=== PATIENT | female | born 1955 ===

== ENCOUNTER 2018-04-08 11:51 | Emergency (ER) | payer OTHER ==
[2018-04-08 11:58] VITALS: BP 124/76; PULSE 87; RESP 18; TEMP 98.4; O2SAT 98
[2018-04-08] MEDS ORDERED: Promethazine/Cod 6.25mg-10mg/5ml Syr UD PO STA (12:25)
[2018-04-08] MEDS ORDERED: Albuterol 0.083% Inhal Sol (2.5 mg/3 mL) UD IH STA (12:25)
--- NOTE | 2018-04-08 12:29 | C.PDOC ---
History Of Present Illness 62 y/o female pt with PMHx of asthma and pre-diabetic comes to the ER for evaluation of cold sx for x6 days. Associated sx includes nasal congestion, sore throat, productive cough with sputum. Pt reports she started coughing with chest tightness this morning which prompt her to visit the ER. Pt denies fever, dizziness, headache, drooling, chest pain, SOB, palpitation, dipahoresis, abdominal pain, back pain, UTI sx. Ambulate to Ed for evaluation, not in any apparent distress. Time Seen by Provider: 04/08/18 12:01 Chief Complaint (Nursing): Cough, Cold, Congestion History Per: Patient History/Exam Limitations: no limitations Onset/Duration Of Symptoms: Days (x6 ) Current Symptoms Are (Timing): Still Present Past Medical History Reviewed: Historical Data, Nursing Documentation, Vital Signs Vital Signs: Last Vital Signs Temp 98.4 F 04/08/18 11:56 Pulse 87 04/08/18 11:56 Resp 18 04/08/18 11:56 BP 124/76 04/08/18 11:56 Pulse Ox 98 04/08/18 11:56 - Medical History PMH: Bipolar Disorder, Depression, HTN, Hypercholesterolemia, Seizures Family History: States: Unknown Family Hx - Social History Hx Alcohol Use: No Hx Substance Use: No - Immunization History Hx Tetanus Toxoid Vaccination: No Hx Influenza Vaccination: No Hx Pneumococcal Vaccination: No Review Of Systems Except As Marked, All Systems Reviewed And Found Negative. Constitutional: Negative for: Fever ENT: Positive for: Nose Congestion, Throat Pain Cardiovascular: Positive for: Other (chest tightness). Negative for: Chest Pain Respiratory: Positive for: Cough (productive with sputum ). Negative for: Shortness of Breath Gastrointestinal: Negative for: Abdominal Pain Neurological: Negative for: Headache, Dizziness Physical Exam - Physical Exam Appears: Well, Non-toxic, No Acute Distress Skin: Normal Color, Warm, Dry, No Rash Head: Normacephalic Eye(s): bilateral: PERRL Ear(s): Bilateral: Normal Nose: No Flaring, Discharge (scant, clear B/L) Oral Mucosa: Moist Tongue: Normal Appearing Throat: Erythema (mod B/L with mild edema.), No Exudate, No Drooling Neck: Supple, Other ((-) meningeal sign) Cardiovascular: Rhythm Regular, No Murmur, No JVD Respiratory: No Decreased Breath Sounds, No Accessory Muscle Use, No Rales, No Rhonchi, No Stridor, Wheezing (scattered Right base expiratory wheeizng, BS equal B/L) Gastrointestinal/Abdominal: Soft, No Tenderness, No Distention, No Guarding, No Rebound Extremity: Normal ROM, No Pedal Edema, No Deformity, No Swelling Neurological/Psych: Oriented x3, Normal Speech ED Course And Treatment O2 Sat by Pulse Oximetry: 98 (RA) Pulse Ox Interpretation: Normal - Radiology CXR: Interpreted by Me, Viewed By Me CXR Interpretation: Yes: No Acute Disease Progress Note: Impression: cold sx. Plans: -- CXR. -- albuterol. -- codeine. -- prednisone. On re-eval, pt is afebrile, hemodynamicaly stable. Non-toxic. PulseOx 98% RA. ENT: exam c/w pharyngitis. uvula midline, no edmea. neck: Supple, (-) JVD. Lungs: CTA B/L, BS equal B/L. CVS: (+)S1S2, reg. Abd: benign. Neuorlogicaly intact. CXR review (-) acute infiltrate noted. Pt has clinical findings c/w pharyngitis, asthma bronchitis. Pt advised. ref. to F/u with PMD in2 -3 days for re-evaluation. return if any new changes. Disposition Counseled Patient/Family Regarding: Studies Performed, Diagnosis, Need For Followup, Rx Given - Disposition Referrals: Magdaleno Suggs MD [IM] - Disposition: HOME/ ROUTINE Disposition Time: 13:05 Condition: STABLE Additional Instructions: Encourage fluids take medication as prescribed Follow up with PMD in 2-3 days for re-evaluation. return to Ed if any worsening or new changes. Prescriptions: Albuterol HFA [Ventolin HFA 90 mcg/actuation (8 g)] 1 puff IH Q6 #1 inhaler Cefdinir [Omnicef] 300 mg PO BID #14 cap Prednisone [Deltasone] 40 mg PO DAILY #6 tablet Promethazine/Codeine [Phenergan/Codeine Oral Syrup] 10 ml PO BID #90 ml Instructions: Asthma, Adult (DC), Sore Throat, Adult (DC) Forms: [email or web address] (Afghan) - Clinical Impression Clinical Impression: Bronchitis, Pharyngitis, Asthma - PA / [employer]AD[employer] / Resident Statement MD/ has reviewed & agrees with the documentation as recorded. - Scribe Statement The provider has reviewed the documentation as recorded by the Shabnam Lunsford Do All medical record entries made by the Scribe were at my direction and personally dictated by me. I have reviewed the chart and agree that the record accurately reflects my personal performance of the history, physical exam, medical decision making, and the department course for this patient. I have also personally directed, reviewed, and agree with the discharge instructions and disposition.
[2018-04-08] MEDS ORDERED: Albuterol 0.083% Inhal Sol (2.5 mg/3 mL) UD ONE (12:40)
[2018-04-08] MEDS ORDERED: Promethazine/Cod 6.25mg-10mg/5ml Syr UD ONE (13:01)
--- NOTE | 2018-04-08 15:30 | RAD ---
Date of service: 04/08/2018 HISTORY: Cough COMPARISON: Chest radiographs 06/16/2017. TECHNIQUE: Chest PA and lateral FINDINGS: LUNGS: No active pulmonary disease. PLEURA: No significant pleural effusion identified. No pneumothorax apparent. CARDIOVASCULAR: No aortic atherosclerotic calcification present. Normal cardiac size. No pulmonary vascular congestion. OSSEOUS STRUCTURES: No significant abnormalities. VISUALIZED UPPER ABDOMEN: Normal. OTHER FINDINGS: None. IMPRESSION: No interval acute cardiopulmonary disease appreciated.
== END 2018-04-08 13:28 | disposition home or self-care (01) ==
LOC: C.ER 11:51
DX: J45.909 Unspecified asthma, uncomplicated (principal); J02.9 Acute pharyngitis, unspecified; Z87.891 Personal history of nicotine dependence

== ENCOUNTER 2018-04-22 20:19 | Observation (INO) | payer OTHER ==
[2018-04-22] MEDS ORDERED: Albuterol-Ipratrop 3 mg / 0.5 (3 ml) UD INH STA (20:45)
[2018-04-22] MEDS ORDERED: Albuterol-Ipratrop 3 mg / 0.5 (3 ml) UD ONE (21:16)
[2018-04-22] MEDS: Sodium Chloride 0.9% 1,000 ML IV SCH (21:25)
--- NOTE | 2018-04-22 21:27 | C.PDOC ---
History Of Present Illness 62 yo female with PMH asthma, hypothyroidism, htn c/o productive cough and sob for 2 weeks. Pt notes she was evaluated on 04/08/18 and treated with prednisone, albuterol, antibiotics and cough medication. She states the symptoms persisted so she followed up with her PMD who prescribed her additional cough mediation. Pt had no improvement of symptoms prompting ER visit. Time Seen by Provider: 04/22/18 20:37 Chief Complaint (Nursing): Cough, Cold, Congestion Past Medical History Vital Signs: Last Vital Signs Temp 99.1 F 04/22/18 20:28 Pulse 96 H 04/22/18 20:28 Resp 18 04/22/18 20:28 BP 122/80 04/22/18 20:28 Pulse Ox 97 04/22/18 20:28 - Medical History PMH: Asthma, Bipolar Disorder, Depression, HTN, Hypercholesterolemia, Hypothyroidism, Schizophrenia, Seizures Family History: States: Unknown Family Hx - Social History Hx Alcohol Use: No Hx Substance Use: No - Immunization History Hx Tetanus Toxoid Vaccination: No Hx Influenza Vaccination: No Hx Pneumococcal Vaccination: No Physical Exam - Physical Exam Appears: Well, Non-toxic, No Acute Distress, Other (persistent cough) Skin: Normal Color, Warm, Dry Head: Atraumatic, Normacephalic Eye(s): bilateral: Normal Inspection, EOMI Nose: Normal Oral Mucosa: Moist Throat: Normal, No Erythema, No Exudate Neck: Normal, Normal ROM, Supple Chest: Symmetrical Cardiovascular: Rhythm Regular Respiratory: Wheezing (scattered wheezing) Gastrointestinal/Abdominal: Normal Exam, Soft, No Tenderness Back: Normal Inspection Extremity: Normal ROM ED Course And Treatment - Laboratory Results Result Diagrams: 04/22/18 21:12 04/22/18 21:12 ECG Rhythm: Sinus Rhythm (Normal) Interpretation Of ECG: Possible left atrial enlargement. Left ventricular hypertrophy. Nonspecific ST abnormality. Rate From EC O2 Sat by Pulse Oximetry: 97 (RA) Pulse Ox Interpretation: Normal Disposition - Disposition Disposition Time: 21:53 Forms: [facility] [employer] (Greek) - Clinical Impression Clinical Impression: Asthma exacerbation
[2018-04-22 21:28] LABS: BASO # 0.2 K/uL (0.0-0.2); BASO % 1.2 % (0.0-2.0); EOS # 0.2 K/uL (0.0-0.7); EOS % 1.4 % (0.0-4.0); LYMPH # 3.6 K/uL (1.0-4.3); LYMPH % 28.9 % (20.0-40.0); MEAN CELL VOLUME 91.2 fL (81.0-99.0); MEAN CORPUSCULAR HEMOGLOBIN 31.2 pg (27.0-31.0); MEAN CORPUSCULAR HGB CONC 34.2 g/dL (33.0-37.0); MEAN PLATELET VOLUME 7.7 fL (7.2-11.7); MONO # 1.3 K/uL (0.0-0.8); MONO % 10.4 % (0.0-10.0); NEUT # 7.3 K/uL (1.8-7.0); NEUT % 58.1 % (50.0-75.0); NRBC % 0.1 % (0.0-2.0); RBC 3.84 Mil/uL (3.80-5.20); RED CELL DISTRIBUTION WIDTH 12.9 % (11.5-14.5); WHITE BLOOD COUNT 12.6 K/uL (4.8-10.8)
[2018-04-22 21:29] LABS: ALB/GLOB RATIO 1.2 (1.0-2.1); ALBUMIN 3.9 g/dL (3.5-5.0); ALT/SGPT 17 U/L (9-52); AST/SGOT 22 U/L (14-36); BLOOD UREA NITROGEN 15 mg/dL (7-17); CALCIUM 9.8 mg/dl (8.6-10.4); GFR NON-AFRICAN AMERICAN > 60
[2018-04-22 21:41] LABS: CK-MB 1.43 ng/mL (0.0-3.38)
[2018-04-23] MEDS: MethylPREDNISolone 40 mg Vial IVP SCH ×3 (00:34→18:05)
[2018-04-23] MEDS ORDERED: Azithromycin 500mg/250ML NS 500 MG/250 ML BAG IVPB SCH (01:00)
[2018-04-23] MEDS: Albuterol-Ipratrop 3 mg / 0.5 (3 ml) UD INH SCH ×4 (02:00→19:27)
[2018-04-23] MEDS: Levothyroxine 100 MCG TAB PO SCH (05:50)
[2018-04-23] MEDS: Fluticasone-Vilanterol 100/25mcg Diskus INH SCH (08:10)
[2018-04-23] MEDS: Enoxaparin 40 mg Syringe SC SCH (09:55)
[2018-04-23] MEDS ORDERED: Ergocalciferol 50,000 Intl Units Cap PO SCH (10:00)
[2018-04-23] MEDS: Divalproex 500 mg ER Tab PO SCH ×2 (10:02→10:03)
[2018-04-23] MEDS: Calcium-Vit D 500 mg-200 Units Tab UD PO SCH (10:04)
[2018-04-23] MEDS: Pantoprazole 40 mg EC Tab PO SCH (10:04)
--- NOTE | 2018-04-23 12:54 | CP.PCM.HP ---
Past Patient History - Infectious Disease Hx of Infectious Diseases: None - Past Social History Smoking Status: Former Smoker - CARDIAC Hx Hypercholesterolemia: Yes Hx Hypertension: Yes - PULMONARY Hx Asthma: Yes - NEUROLOGICAL Hx Seizures: Yes - ENDOCRINE/METABOLIC Hx Hypothyroidism: Yes - PSYCHIATRIC Hx Bipolar Disorder: Yes Hx Depression: Yes Hx Schizophrenia: Yes Hx Substance Use: No - SURGICAL HISTORY Hx Mastectomy: Yes (left) - ANESTHESIA Hx Anesthesia: Yes Hx Anesthesia Reactions: No Meds Allergies/Adverse Reactions: Allergies Allergy/AdvReac Type Severity Reaction Status Date / Time cat hair Allergy Mild Uncoded 04/22/18 20:33 Physical Exam - Constitutional Appears: Well - Head Exam Head Exam: ATRAUMATIC, NORMAL INSPECTION, NORMOCEPHALIC - Eye Exam Eye Exam: EOMI, Normal appearance, PERRL Pupil Exam: NORMAL ACCOMODATION, PERRL - ENT Exam ENT Exam: Mucous Membranes Moist, Normal Exam - Neck Exam Neck exam: Positive for: Normal Inspection - Respiratory Exam Respiratory Exam: Decreased Breath Sounds - Cardiovascular Exam Cardiovascular Exam: REGULAR RHYTHM, +S1, +S2 - GI/Abdominal Exam GI & Abdominal Exam: Diminished Bowel Sounds, Soft - Rectal Exam Rectal Exam: Deferred Results - Vital Signs Recent Vital Signs: Last Vital Signs Temp 97.9 F 04/23/18 09:00 Pulse 90 04/23/18 09:00 Resp 20 04/23/18 09:00 BP 111/70 04/23/18 09:00 Pulse Ox 98 04/23/18 09:00 - Labs Result Diagrams: 04/22/18 21:12 04/22/18 21:12 Labs: Laboratory Results - last 24 hr 04/22/18 04/22/18 21:12 21:12 WBC 12.6 H D RBC 3.84 Hgb 12.0 Hct 35.0 MCV 91.2 MCH 31.2 H MCHC 34.2 RDW 12.9 Plt Count 303 MPV 7.7 Neut % (Auto) 58.1 Lymph % (Auto) 28.9 [place] % (Auto) 10.4 H Eos % (Auto) 1.4 Baso % (Auto) 1.2 Neut # (Auto) 7.3 H Lymph # (Auto) 3.6 [place] # (Auto) 1.3 H Eos # (Auto) 0.2 Baso # (Auto) 0.2 Sodium 143 Potassium 3.5 L Chloride 104 Carbon Dioxide 29 Anion Gap 14 BUN 15 Creatinine 0.9 Est GFR ( Amer) > 60 Est GFR (Non-Af Amer) > 60 Random Glucose 112 H Calcium 9.8 Total Bilirubin 0.3 AST 22 ALT 17 Alkaline Phosphatase 70 Total Creatine Kinase 174 H CK-MB (Mass) 1.43 Troponin I < 0.0120 Total Protein 7.3 Albumin 3.9 Globulin 3.3 Albumin/Globulin Ratio 1.2
[2018-04-23] MEDS: Promethazine DM 6.25 mg-15 mg/5 ml Syrup PO SCH ×2 (15:27→18:02)
[2018-04-23] MEDS: Sodium Chloride 0.9% 1,000 ML IV SCH (20:43)
[2018-04-24] MEDS: MethylPREDNISolone 40 mg Vial IVP SCH ×3 (00:28→16:05)
[2018-04-24] MEDS: Albuterol-Ipratrop 3 mg / 0.5 (3 ml) UD INH SCH ×3 (01:25→13:43)
[2018-04-24] MEDS ORDERED: Azithromycin 500 MG in Sodium Chloride 0.9% 250 ML IVPB SCH (01:45)
[2018-04-24] MEDS: Levothyroxine 100 MCG TAB PO SCH (06:05)
[2018-04-24] MEDS: Fluticasone-Vilanterol 100/25mcg Diskus INH SCH (08:30)
[2018-04-24] MEDS ORDERED: Pneumococcal 23-Valent Vaccine IM ONE (10:00)
[2018-04-24] MEDS: Divalproex 500 mg ER Tab PO SCH (10:14)
[2018-04-24] MEDS: Calcium-Vit D 500 mg-200 Units Tab UD PO SCH (10:14)
[2018-04-24] MEDS: Promethazine DM 6.25 mg-15 mg/5 ml Syrup PO SCH (10:14)
[2018-04-24] MEDS: Pantoprazole 40 mg EC Tab PO SCH (10:14)
[2018-04-24] MEDS: Enoxaparin 40 mg Syringe SC SCH (10:16)
[2018-04-24] MEDS: Sodium Chloride 0.9% 1,000 ML IV SCH (10:40)
--- NOTE | 2018-04-24 14:56 | CP.PCM.PN ---
Subjective - Date & Time of Evaluation Date of Evaluation: 04/24/18 Time of Evaluation: 14:56 Objective - Vital Signs/Intake and Output Vital Signs (last 24 hours): Temp Pulse Resp BP Pulse Ox 97.6 F 89 18 110/73 96 04/24/18 07:00 04/24/18 07:00 04/24/18 07:00 04/24/18 07:00 04/24/18 07:00 Intake and Output: 04/24/18 04/24/18 06:59 18:59 Intake Total 1820 Balance 1820 - Medications Medications: Current Medications Albuterol/Ipratropium (Duoneb 3 Mg/0.5 Mg (3 Ml) Ud) 3 ml INH RQ6 [facility] Last Admin: 04/24/18 13:43 Dose: 3 ml Amlodipine Besylate (Norvasc) 10 mg PO DAILY [facility] Last Admin: 04/24/18 10:14 Dose: 10 mg Aripiprazole (Abilify) 2 mg PO DAILY [facility] Last Admin: 04/24/18 10:13 Dose: 2 mg Calcium/Vitamin D (Oyster Shell Calcium/Vitamin D 500 Mg-200 Iu) 1 tab PO DAILY [facility] Last Admin: 04/24/18 10:14 Dose: 1 tab Clopidogrel Bisulfate (Plavix) 75 mg PO DAILY [facility] Last Admin: 04/24/18 10:14 Dose: 75 mg Divalproex Sodium (Depakote Er) 500 mg PO DAILY [facility] Last Admin: 04/24/18 10:14 Dose: 500 mg Enoxaparin Sodium (Lovenox) 40 mg SC DAILY [facility] Last Admin: 04/24/18 10:16 Dose: 40 mg Ergocalciferol (Drisdol 50,000 Intl Units Cap) 1 cap PO QWK [facility] Last Admin: 04/23/18 10:04 Dose: 1 cap Fluticasone/Vilanterol (Breo Ellipta 100-25 Mcg Inh) 1 puff INH RQD [facility] Last Admin: 04/24/18 08:30 Dose: Not Given Sodium Chloride (Sodium Chloride 0.9%) 1,000 mls @ 100 mls/hr IV .Q10H [facility] Last Admin: 04/24/18 10:40 Dose: 100 mls/hr Ceftriaxone Sodium 1 gm/ (Sodium Chloride) 100 mls @ 100 mls/hr IVPB Q24H [facility]; Protocol Last Admin: 04/24/18 00:30 Dose: 100 mls/hr Azithromycin 500 mg/ Sodium (Chloride) 250 mls @ 167 mls/hr IVPB Q24H [facility]; Protocol Last Admin: 04/24/18 01:55 Dose: 167 mls/hr Levothyroxine Sodium (Synthroid) 100 mcg PO DAILY@0630 APRIL Last Admin: 04/24/18 06:05 Dose: 100 mcg Losartan Potassium (Cozaar) 100 mg PO DAILY APRIL Last Admin: 04/24/18 10:13 Dose: 100 mg Methylprednisolone (Solu-Medrol) 40 mg IVP Q8H [facility] Last Admin: 04/24/18 08:20 Dose: 40 mg Montelukast Sodium (Singulair) 10 mg PO HS [facility] Last Admin: 04/23/18 21:50 Dose: 10 mg Pantoprazole Sodium (Protonix Ec Tab) 40 mg PO DAILY [facility] Last Admin: 04/24/18 10:14 Dose: 40 mg Promethazine HCl/Dextromethorphan (Phenergan Dm Syrup) 5 ml PO DAILY APRIL Last Admin: 04/24/18 10:14 Dose: 5 ml Rosuvastatin Calcium (Crestor) 10 mg PO HS [facility] Last Admin: 04/23/18 21:50 Dose: 10 mg - Labs Labs: 04/22/18 21:12 04/22/18 21:12 Assessment and Plan - Assessment and Plan (Free Text) Assessment: FOLLOW UP WITH DR Latia WARD OR PMD IN OFFICE ----CALL FOR APPOINTMENT CONTINUE HOME MEDICATION NEW PRESCRIPTION GIVEN DUONEB Q6H PRN FOR BREATHING TX PER DR Latia WARD ACTIVITY TOLERATED CALL DR Latia WARD OR GO TO THE EMERGENCY ROOM IF SYMPTOM RETURN OR WORSENING
--- NOTE | 2018-04-24 23:05 | CARD ---
APPROVED REPORT Date of service: 04/22/2018 EKG Measurement Heart [id number] <Conclusion> Normal sinus rhythm Possible Left atrial enlargement Left ventricular hypertrophy Nonspecific ST abnormality Abnormal ECG
[2018-04-25 00:41] VITALS: BP 141/82; PULSE 87; RESP 20; TEMP 98.2; O2SAT 95
== END 2018-04-24 17:37 | disposition home or self-care (01) ==
LOC: C.ER 20:19 → INTOOBSV 21:54 → C.9E 21:54 → C.6T 22:22
PROVIDERS: ADMIT Internal Medicine Nephrology; ATTEND Internal Medicine Nephrology
DX: J45.901 Unspecified asthma with (acute) exacerbation (principal); E78.00 Pure hypercholesterolemia, unspecified; I10 Essential (primary) hypertension; E03.9 Hypothyroidism, unspecified; F20.9 Schizophrenia, unspecified; F31.9 Bipolar disorder, unspecified; Z87.891 Personal history of nicotine dependence
CPT/HCPCS: 80053; 82550; 82553; 84484; 85025; 93005; 94640; 94760; 96374; 99284; G0378; J0456; J0696; J1650; J2920; J2930; J7030